=== PATIENT | female | born 1975 | race Caucasian/White ===

== ENCOUNTER 2024-03-15 06:16 | Day surgery (SDC) | payer OTHER, SELFPAY | END 2024-03-15 13:29 | disposition home or self-care (01) | LOC: GI 06:16 | PROVIDERS: ATTENDING PHYSICIAN Internal Medicine Gastroenterology | DX: K57.30 Diverticulosis of large intestine without perforation or abscess without bleeding (principal); K64.8 Other hemorrhoids; D72.820 Lymphocytosis (symptomatic); K22.2 Esophageal obstruction; R13.10 Dysphagia, unspecified; R93.3 Abnormal findings on diagnostic imaging of other parts of digestive tract; Z87.19 Personal history of other diseases of the digestive system | CPT/HCPCS: 43249; 45378; 43239; 88305 ==